=== PATIENT | female | born 1970 | race Caucasian/White ===

== ENCOUNTER 2018-10-22 08:49 | Outpatient (CLI) | payer BC ==
--- NOTE | 2018-10-22 11:29 | ULT ---
RIGHT UPPER QUADRANT ULTRASOUND: Indication: IBS, gastroesophageal reflux disease. FINDINGS: There is prominent fatty infiltration of the liver. There are numerous shadowing stones within the ga llbladder. No gallbladder wall thickening or pericholecystic fluid is evident. No sonographic Lester sign is reported. The common bile duct measured 8.9 mm which is slightly prominent for age. No chan intrahepatic biliary ductal dilatation is noted. No pericholecystic fluid is noted. Visualized aspect s of the pancreas are unremarkable. The right kidney measured 12.1 cm in length without evidence of f ocal renal lesion or hydronephrosis. IMPRESSION 1. Cholelithiasis without sonographic evidence of acute cholecystitis. 2. Slightly prominent common bile duct. Distal obstructive process versus small stone or mass cannot be entirely excluded. Recommend consideration for an MRCP examination. Recommend clinical exam for an y symptoms or signsof choledocholithiasis. 3. Fatty infiltration of the liver. POS: CARMITA
== END 2018-10-22 08:50 | disposition home or self-care (01) ==
LOC: BICULT 08:49
PROVIDERS: ATTEND Internal Medicine Gastroenterology
DX: K21.9 Gastro-esophageal reflux disease without esophagitis (principal); K58.9 Irritable bowel syndrome, unspecified; K76.0 Fatty (change of) liver, not elsewhere classified; K80.20 Calculus of gallbladder without cholecystitis without obstruction
CPT/HCPCS: 76705

== ENCOUNTER 2018-10-25 10:02 | Day surgery (SDC) | payer BC ==
[2018-10-24 12:05] VITALS: BMI 46.3
[2018-10-25] MEDS ORDERED: PROPOFOL 200 MG/20 ML VIAL ONE (17:22)
--- NOTE | 2018-10-25 20:07 | OP ---
DATE OF PROCEDURE: 10/25/2018 TITLE OF PROCEDURE: Colonoscopy. PREPROCEDURE DIAGNOSIS: Average risk colon cancer screening. POSTPROCEDURE DIAGNOSES: 1. Exam to cecum; good bowel preparation. 2. Moderate sigmoid diverticulosis. 3. Small internal hemorrhoids. 4. Otherwise normal colonoscopy. PROCEDURE IN DETAIL: Written informed consent was obtained. Upon completion of the EGD, the patient was repositioned for the colonoscopy. Total intravenous anesthesia was provided by Dr. Ernst Winters and associates. The patient was placed in the left lateral decubitus position. A digital rectal exam was remarkable for a few small external skin tags. A Pentax video colonoscope was inserted through the anal canal and advanced under direct visualization to the cecum. Position in the cecum was verified by clear identification of the appendiceal orifice and the ileocecal valve. The quality of the bowel preparation was good. Each colon segment was examined carefully as the colonoscope was slowly withdrawn from the cecum. Vascular pattern and haustral folds appeared normal. Frequent diverticular orifices were noted in the sigmoid colon without evidence of bleeding or infection. No polyps were identified. In the rectum, retroflexed view demonstrated small internal hemorrhoids that were not bleeding. The colon was decompressed as the colonoscope was removed from the patient. She was transferred to the Day Stay surgery area for postprocedure monitoring. There were no immediate complications. RECOMMENDATIONS: 1. High-fiber, low-fat diet. 2. Continue Amitiza for chronic constipation. 3. Repeat colon screening in 10 years. 4. Resume previous medications. 5. Follow up in GI Clinic as directed per my EGD report. Job ID: [id number]
--- NOTE | 2018-10-25 20:16 | OP ---
DATE OF PROCEDURE: 10/25/2018 PROCEDURE PERFORMED: Esophagogastroduodenoscopy with biopsy. PREPROCEDURE DIAGNOSIS: Chronic gastroesophageal reflux disease. POSTPROCEDURE DIAGNOSES: 1. Exam to second portion of duodenum. 2. A 2 to 3 cm sliding hiatal hernia. 3. Mildly irregular Z-line with a few small chronic erosions, biopsied. 4. No esophageal or gastric ulcers. 5. Normal stomach. 6. Normal duodenum. DESCRIPTION OF PROCEDURE: Written informed consent was obtained. The patient was brought to the endoscopy suite. Total intravenous anesthesia was provided by Dr. Ernst Winters. The patient was placed in the left lateral decubitus position. A bite block was inserted into the mouth. A Pentax video diagnostic gastroscope was introduced into the oral cavity and the esophagus was carefully intubated. The gastroscope was advanced under direct visualization to the second portion of the duodenum. Endoscopic findings revealed a 2 to 3 cm sliding hiatal hernia with the Z-line estimated at about 39 cm. The Z-line appeared mildly irregular with a few small chronic erosions noted at the 39 cm. Biopsies were obtained for histology. There was no evidence of esophageal or gastric ulcer. The stomach was entered and carefully examined. This included a retroflex view of the cardia and fundus. This view demonstrated the small hiatal hernia. No ulcers or gastritis was noted. The duodenum from the bulb to the second portion was then inspected and appeared grossly normal. The stomach was decompressed as the endoscope was removed from the patient. She was then repositioned for the colonoscopy. RECOMMENDATIONS: 1. Await biopsy results. 2. Ask the patient to call me in one week for biopsy results. 3. Continue Dexilant. 4. Encourage modest weight reduction of 10% of current body weight. 5. Follow up with me as needed in GI Clinic in 6 to 8 weeks. Job ID: [id number]
== END 2018-10-25 14:34 | disposition home or self-care (01) ==
LOC: SDC 10:02
PROVIDERS: ATTEND Internal Medicine Gastroenterology
PROC: 0DB58ZX Excision of Esophagus, Via Natural or Artificial Opening Endoscopic, Diagnostic (ICD-10-PCS; principal; 2018-10-25)
PROC: 0DJD8ZZ Inspection of Lower Intestinal Tract, Via Natural or Artificial Opening Endoscopic (ICD-10-PCS; principal; 2018-10-25)
DX: Z12.11 Encounter for screening for malignant neoplasm of colon (principal); K57.31 Diverticulosis of large intestine without perforation or abscess with bleeding; K64.8 Other hemorrhoids; K58.1 Irritable bowel syndrome with constipation; K21.9 Gastro-esophageal reflux disease without esophagitis; K25.9 Gastric ulcer, unspecified as acute or chronic, without hemorrhage or perforation; K44.9 Diaphragmatic hernia without obstruction or gangrene; G47.30 Sleep apnea, unspecified; E66.3 Overweight; Z68.42 Body mass index [BMI] 45.0-49.9, adult; Z87.891 Personal history of nicotine dependence; Z79.899 Other long term (current) drug therapy
CPT/HCPCS: 88305; 88312; 88313; J2704

== ENCOUNTER 2018-10-31 02:47 | Outpatient (CLI) | payer BC ==
[2018-10-31 10:14] LABS: #Eosinphils 0.1 thou/uL (0.0-0.7); #Lymphocytes 1.7 thou/uL (1.20-3.40); #Monocytes 0.4 thou/uL (0.11-0.59); %Basophils 0.8 % (0.0-1.0); %Eosinophils 2.2 % (0.0-10.0); %Lymphocytes 32.5 % (21.0-51.0); %Monocytes 6.9 % (0.0-10.0); %Neutrophils 57.6 % (42.0-75.0); Hemoglobin 14.4 g/dL (12.0-16.0); Mean Corpuscular Hemoglobin 30.7 pg (27.0-31.0); Mean Corpuscular Volume 90.5 fL (78.0-98.0); Mean Platelet Volume 6.8 fL (7.4-10.4); Platelet Count 249 thou/uL (130-400); RBC Distribution Width 11.6 % (11.5-14.5); White Blood Cell (WBC) Count 5.2 thou/uL (4.8-10.8)
[2018-10-31 10:36] LABS: ALT (SGPT) 19 U/L (8-55); AST (SGOT) 20 U/L (5-34); Albumin 4.4 g/dL (3.5-5.0); Alkaline Phosphatase 64 U/L (40-150); Anion Gap 13 mmol/L (10-20); BUN (Urea Nitrogen) 10 mg/dL (7.0-18.7); Bilirubin, Total 0.5 mg/dL (0.2-1.2); Calc. Creatinine Clearance 0 mL/min (70-130); Calcium 9.6 mg/dL (7.8-10.44); Carbon Dioxide 23 mmol/L (22-29); Chloride 104 mmol/L (98-107); Estimated GFR-MDRD 75; Glucose 93 mg/dL (70-105); Potassium 4.1 mmol/L (3.5-5.1); Protein, Total 7.4 g/dL (6.0-8.3); Sodium 136 mmol/L (136-145)
== END 2018-10-31 02:48 | disposition home or self-care (01) ==
LOC: LABBT 02:47
PROVIDERS: ATTEND Surgery
DX: Z01.812 Encounter for preprocedural laboratory examination (principal); K80.20 Calculus of gallbladder without cholecystitis without obstruction
CPT/HCPCS: 80053; 85025

== ENCOUNTER 2018-11-02 08:07 | Day surgery (SDC) | payer BC ==
[2018-10-31 09:19] VITALS: BMI 46.3
[2018-11-02] MEDS ORDERED: Ketorolac Tromethamine 30 MG/ML VIAL ONE (08:27)
[2018-11-02] MEDS ORDERED: CEFAZOLIN 2 GM/50 ML BAG ONE (08:27)
[2018-11-02] MEDS ORDERED: Midazolam HCl 2 mg/2 ml Vial ONE (09:46)
[2018-11-02] MEDS ORDERED: Fentanyl 100 MCG/2 ML VIAL ONE ×3 (09:46→13:35)
[2018-11-02] MEDS ORDERED: Lidocaine 2% Jelly 5 ML TUBE ONE (09:46)
[2018-11-02] MEDS ORDERED: Bupivacaine HCl 0.5%/Epinephrine 1:200,000/PF 30 ml Vial ONE (09:59)
[2018-11-02] MEDS ORDERED: Iothalamate Meglumine 60% 50 ML VIAL FS ONE (09:59)
--- NOTE | 2018-11-02 11:51 | RAD ---
OPERATIVE CHOLANGIOGRAM 2 VIEWS: Date: 11/02/18 HISTORY: Intraoperative films. FINDINGS: These show filling of the nondilated common duct. No filling defects. Emptying into the duodenum is n oted. IMPRESSION: Unremarkable operative cholangiogram. POS: [facility]
[2018-11-02] MEDS ORDERED: Promethazine HCl 25 MG/ML VIAL ONE (12:29)
--- NOTE | 2018-11-02 14:42 | PDOC.OP ---
Operative Note - Operative Note Operative Note: PROCEDURE: Laparoscopic cholecystectomy with intraoperative cholangiogram SURGEON: Sarah Cornell M.D. DATE OF PROCEDURE: PREOPERATIVE DIAGNOSIS: Cholelithiasis and cholecystitis, possible choledocholithiasis: POSTOPERATIVE DIAGNOSIS: Cholelithiasis and cholecystitis HISTORY: FINDINGS: Extremely thick-walled chronically inflamed gallbladder with stone impacted in the neck and cloudy collarless bile aspirated. Normal intraoperative cholangiogram. PROCEDURE IN DETAIL: After informed consent was obtained and appropriate preoperative antibiotics were administered, the patient was taken to the operating room and placed in the supine position and general endotracheal anesthesia was administered. The stomach was decompressed with an OG tube and the abdomen was prepped and draped in standard sterile fashion. Local anesthesia was infused to the skin and subcutaneous tissues at the umbilical level. A transverse skin incision was made. The fascia was elevated and a Veress needle was placed into the abdominal cavity without difficulty. Opening pressure was less than 5 and carbon dioxide gas easily insufflated to an intra- abdominal pressure of 15, which the patient tolerated well. The Veress needle was withdrawn and a [place] port advanced under direct vision. The abdominal cavity was carefully examined. There was no evidence of Veress needle or of trocar injury. Local anesthesia was infused to the skin and subcutaneous tissues at the epigastric, right upper quadrant, and right lateral abdominal sites and trocars were placed under direct vision of the laparoscope. The fundus of the gallbladder was too taut to grasp so this was aspirated with removal of 130 mL of cloudy colorless bile which was sent for Gram stain and culture. The fundus was then able to be grasped and retracted superiorly. The infundibulum was grasped and retracted laterally. The serosa was stripped inferiorly at the level of the neck of the gallbladder, where a stone was visible impacted in the neck. The cystic duct and artery which were traced clearly to their insertion in the gallbladder. These were dissected free circumferentially and the cystic duct was clipped at the level of the neck of the gallbladder. The cystic artery was clipped but not divided. An incision was made in the cystic duct inferior to the clip and the cystic duct was palpated with no stones palpable. Clear bile was seen to flow from the cystic duct incision. A cholangiogram catheter was introduced and placed into the cystic duct and secured with a clip. A cholangiogram was obtained which showed an adequate length of cystic duct. There was normal filling of the common bile duct with free flow of contrast into the duodenum. There was normal retrograde flow into the common hepatic duct beyond the level of the bifurcation without filling defects. The cholangiogram catheter was removed and the cystic duct clipped below the incision in the cystic duct. The cystic duct was divided between these clips and the previously placed clip. The cystic artery was clipped and divided between the previously placed clips. The gallbladder was then dissected free of the gallbladder bed using hook electrocautery. Prior to complete removal of the gallbladder from the gallbladder bed, the area of the cystic duct and artery stumps was examined. The clips were in good position completely across these structures and there was no bleeding and no leakage of bile. The gallbladder was then placed into an EndoCatch bag and drawn out through the epigastric incision, with some difficulty due to the thickened nature of the gallbladder, after crushing and removing several gallstones. The epigastric trocar was replaced and the operative site easily irrigated to clear. There was no significant bleeding or spillage of bile. The epigastric trocar was removed and the fascia closed under direct laparoscopic vision with a 0 Vicryl suture on a GraNee needle in a [id number] manner with excellent technical result. The right upper quadrant and right lateral abdominal trocars were removed and hemostasis verified. Carbon dioxide gas was allowed to desufflate through the umbilical trocar which was then removed. The skin incisions were closed with 4-0 subcuticular Monocryl sutures and Dermabond dressings were placed. The patient was extubated and taken to the recovery room in good condition. There were no complications. ESTIMATED BLOOD LOSS: Minimal. SPECIMEN : Gallbladder and contents.
[2018-11-02] MEDS ORDERED: HYDROcodone/Acetaminophen 5/325 mg Tablet ONE (15:15)
[2018-11-02] MEDS ORDERED: Succinylcholine Chloride 20 MG/ML 10 ml SYRINGE FS ONE (15:59)
[2018-11-02] MEDS ORDERED: Rocuronium Bromide 10 MG/ML (10ML VIAL) ONE (15:59)
[2018-11-02] MEDS ORDERED: PROPOFOL 200 MG/20 ML VIAL ONE (15:59)
[2018-11-02] MEDS ORDERED: Lidocaine 1% PF 5 ML VIAL ONE (15:59)
[2018-11-02] MEDS ORDERED: ePHEDrine 50 MG/ML VIAL ONE (15:59)
[2018-11-02] MEDS ORDERED: Ondansetron PF 4 MG/2 ML Vial ONE (15:59)
[2018-11-02] MEDS ORDERED: Glycopyrrolate 0.2 MG/ML 5 ML SYRINGE ONE (15:59)
[2018-11-02] MEDS ORDERED: Dexamethasone 20 MG/5 ML VIAL ONE (15:59)
[2018-11-02] MEDS ORDERED: PHENYLEPHRINE-NS 100 MCG/ML 10 ML SYRINGE ONE (15:59)
== END 2018-11-02 15:30 | disposition home or self-care (01) ==
LOC: SDC 08:07
PROVIDERS: ATTEND Surgery
PROC: 0FT44ZZ Resection of Gallbladder, Percutaneous Endoscopic Approach (ICD-10-PCS; principal; 2018-11-02)
PROC: BF101ZZ Fluoroscopy of Bile Ducts using Low Osmolar Contrast (ICD-10-PCS; principal; 2018-11-02)
DX: K80.10 Calculus of gallbladder with chronic cholecystitis without obstruction (principal); K21.9 Gastro-esophageal reflux disease without esophagitis; K44.9 Diaphragmatic hernia without obstruction or gangrene; G47.30 Sleep apnea, unspecified; E78.2 Mixed hyperlipidemia; K58.9 Irritable bowel syndrome, unspecified; E66.01 Morbid (severe) obesity due to excess calories; Z68.42 Body mass index [BMI] 45.0-49.9, adult; Z79.899 Other long term (current) drug therapy
CPT/HCPCS: 47532; 87070; 87205; 88304; J0131; J0670; J1100; J1610; J1885; J2001; J2250; J2405; J2550; J2704; J3010; J3490; Q9961

== ENCOUNTER 2019-01-16 10:31 | Outpatient (CLI) | payer BC ==
--- NOTE | 2019-01-16 11:40 | ULT ---
TRANSABDOMINAL AND TRANSVAGINAL PELVIC ULTRASOUND WITH GRAYSCALE, COLORFLOW, AND SPECTRAL DOPPLER MAN GING: FINDINGS: The uterus measures 9.2 x 5.2 x 6.4 cm with heterogeneous echotexture. There are at least two masses seen, the larger measuring 2.8 x 2.3 x 2.0 cm, consistent with fibroids. No endometrial fluid is se en. The endometrium measures 6 mm in thickness. The left ovary is not visualized. The right ovary measures 3.1 x 2.6 x 2.2 cm. There is flow demonstrated to the right ovary. There is a 2.2 cm cyst arising from the right ovary. No free fluid is identified. IMPRESSION: 1. Uterine fibroids. 2. A 2.2 cm right ovarian cyst. POS: OFF
== END 2019-01-16 10:32 | disposition home or self-care (01) ==
LOC: BICULT 10:31
PROVIDERS: ATTEND Physician Assistant
DX: N93.9 Abnormal uterine and vaginal bleeding, unspecified (principal); D25.9 Leiomyoma of uterus, unspecified; N83.201 Unspecified ovarian cyst, right side
CPT/HCPCS: 76856

== ENCOUNTER 2021-08-18 12:41 | Outpatient (CLI) | payer BC | END 2021-08-18 12:42 | disposition home or self-care (01) | LOC: BICCT 12:41 | PROVIDERS: ATTEND Family Medicine | DX: Z12.2 Encounter for screening for malignant neoplasm of respiratory organs (principal); J66.8 Airway disease due to other specific organic dusts; Z87.891 Personal history of nicotine dependence | CPT/HCPCS: 71271 ==

== ENCOUNTER 2022-03-30 10:12 | Emergency (ER) | payer BC, SELFPAY ==
[~2022-03-30 10:12] MED LIST: ISOVUE-370 76%-LOCM 1 ML ONE
[2022-03-30 10:42] LABS: #Basophils 0.1 thou/uL (0.0-0.2); #Eosinphils 0.1 thou/uL (0.0-0.7); #Lymphocytes 1.7 thou/uL (1.20-3.40); #Monocytes 0.3 thou/uL (0.11-0.59); #Neutrophils 2.9 thou/uL (1.40-6.50); %Basophils 1.4 % (0.0-1.0); %Eosinophils 2.8 % (0.0-10.0); %Lymphocytes 33.8 % (21.0-51.0); Hemoglobin 14.4 g/dL (12.0-16.0); Mean Corpuscular HGB CONC 32.9 g/dL (32.0-36.0); Mean Corpuscular Hemoglobin 30.8 pg (27.0-31.0); Mean Corpuscular Volume 93.6 fL (78.0-98.0); Mean Platelet Volume 7.4 fL (7.4-10.4); Platelet Count 210 thou/uL (130-400); RBC Distribution Width 11.6 % (11.5-14.5); Red Blood Cell (RBC) Count 4.67 mill/uL (4.20-5.40)
[2022-03-30 11:00] LABS: ALT (SGPT) 14 U/L (8-55); AST (SGOT) 22 U/L (5-34); Albumin 4.2 g/dL (3.5-5.0); Alkaline Phosphatase 79 U/L (40-110); Anion Gap 13 mmol/L (10-20); BUN (Urea Nitrogen) 10 mg/dL (9.8-20.1); Bilirubin, Total 0.6 mg/dL (0.2-1.2); Calc. Creatinine Clearance 0 mL/min (70-130); Calcium 9.8 mg/dL (7.8-10.44); Carbon Dioxide 28 mmol/L (22-29); Chloride 101 mmol/L (98-107); Estimated GFR 82; Globulin 3.4 g/dL (2.4-3.5); Glucose 98 mg/dL (70-105); Lipase 13 U/L (8-78); Potassium 4.7 mmol/L (3.5-5.1); Protein, Total 7.6 g/dL (6.0-8.3); Sodium 137 mmol/L (136-145)
[2022-03-30 12:05] LABS: Bilirubin Negative (Negative); Blood, Urine Negative (Negative); Clarity Clear (Clear); Glucose, Urine (Dipstick) Normal (Negative); Ketone, Urine Negative (Negative); Leukocyte Negative Leu/uL (Negative); Nitrite Negative (Negative); Protein, Urine (Dipstick) Negative (Neg-Trace); Specific Gravity, Urine 1.015 (1.002-1.036); Urobilinogen Normal mg/dL (Less than 2)
== END 2022-03-30 13:55 | disposition home or self-care (01) ==
LOC: ERS 10:12
DX: R10.11 Right upper quadrant pain (principal); Z79.82 Long term (current) use of aspirin
CPT/HCPCS: 36415; 74177; 80053; 81003; 83690; 85025; 93005; 96360; 96361; Q9966

== ENCOUNTER 2022-06-09 15:38 | Outpatient (CLI) | payer BC | END 2022-06-09 15:39 | disposition home or self-care (01) | LOC: BICMAMMO 15:38 | PROVIDERS: ATTEND Family Medicine | DX: Z13.820 Encounter for screening for osteoporosis (principal); Z78.0 Asymptomatic menopausal state | CPT/HCPCS: 77080 ==

== ENCOUNTER 2022-07-15 19:30 | Outpatient (CLI) | payer BC | END 2022-07-15 19:31 | disposition home or self-care (01) | LOC: SLEEPLAB 19:30 | PROVIDERS: ATTEND Family Medicine | DX: G47.00 Insomnia, unspecified (principal); R53.83 Other fatigue; R51.9 Headache, unspecified; K21.9 Gastro-esophageal reflux disease without esophagitis; E66.9 Obesity, unspecified; G47.10 Hypersomnia, unspecified; Z68.42 Body mass index [BMI] 45.0-49.9, adult | CPT/HCPCS: 95811 ==

== ENCOUNTER 2022-09-07 12:32 | Outpatient (CLI) | payer BC | END 2022-09-07 12:33 | disposition home or self-care (01) | LOC: BICCT 12:32 | PROVIDERS: ATTEND Family Medicine | DX: Z12.2 Encounter for screening for malignant neoplasm of respiratory organs (principal); Z87.891 Personal history of nicotine dependence | CPT/HCPCS: 71271 ==

== ENCOUNTER 2022-10-03 08:34 | Outpatient (CLI) | payer BC | END 2022-10-03 08:35 | disposition home or self-care (01) | LOC: RAD 08:34 | PROVIDERS: ATTEND Surgery | DX: K21.9 Gastro-esophageal reflux disease without esophagitis (principal) | CPT/HCPCS: 74220 ==

== ENCOUNTER 2022-11-02 15:37 | Outpatient (CLI) | payer BC | END 2022-11-02 15:38 | disposition home or self-care (01) | LOC: DTY/OP 15:37 | PROVIDERS: ATTEND Surgery | DX: E66.01 Morbid (severe) obesity due to excess calories (principal) | CPT/HCPCS: 97802 ==

== ENCOUNTER 2022-11-17 11:15 | Day surgery (SDC) | payer BC ==
[2022-11-16 15:59] VITALS: BMI 49.1
[2022-11-17] MEDS ORDERED: PROPOFOL 200 MG/20 ML VIAL ONE (12:59)
[2022-11-17] MEDS ORDERED: Lidocaine 1% PF 5 ML VIAL ONE (12:59)
== END 2022-11-17 14:15 | disposition home or self-care (01) ==
LOC: SDC 11:15
PROVIDERS: ATTEND Internal Medicine Gastroenterology
PROC: 0DB38ZX Excision of Lower Esophagus, Via Natural or Artificial Opening Endoscopic, Diagnostic (ICD-10-PCS; principal; 2022-11-17)
DX: K21.00 Gastro-esophageal reflux disease with esophagitis, without bleeding (principal); K22.2 Esophageal obstruction; K44.9 Diaphragmatic hernia without obstruction or gangrene; K58.9 Irritable bowel syndrome, unspecified; G47.30 Sleep apnea, unspecified; E66.9 Obesity, unspecified; Z68.42 Body mass index [BMI] 45.0-49.9, adult; Z87.891 Personal history of nicotine dependence; Z79.899 Other long term (current) drug therapy
CPT/HCPCS: 88305; J2704

== ENCOUNTER 2022-12-21 09:23 | Inpatient (IN) | payer BC ==
[2022-12-19 10:43] VITALS: BMI 49.9
[2022-12-21] MEDS ORDERED: Heparin 5,000 UNITS/ML VIAL ONE (10:10)
[2022-12-21] MEDS ORDERED: Bupivacaine/Epinephrine 0.25% 30 ML VIAL ONE ×2 (11:45→12:31)
[2022-12-21] MEDS ORDERED: Fentanyl 250 MCG/5 ML VIAL ONE (11:48)
[2022-12-21] MEDS ORDERED: SUGAMMADEX SODIUM 200 MG/2 ML VIAL ONE (11:48)
[2022-12-21] MEDS ORDERED: Sodium Chloride 0.9% 100 ML ONE (12:37)
[2022-12-21] MEDS ORDERED: CEFAZOLIN 2 GM VIAL ONE (12:37)
[2022-12-21] MEDS ORDERED: Dexamethasone 20 MG/5 ML VIAL ONE (12:51)
[2022-12-21] MEDS ORDERED: Lidocaine 1% PF 5 ML VIAL ONE (12:51)
[2022-12-21] MEDS ORDERED: Ketorolac Tromethamine 30 MG/ML VIAL ONE (12:51)
[2022-12-21] MEDS ORDERED: PROPOFOL 200 MG/20 ML VIAL ONE (12:51)
[2022-12-21] MEDS ORDERED: ePHEDrine Sulfate 50 MG/10 ML VIAL ONE (12:51)
[2022-12-21] MEDS ORDERED: Ondansetron PF 4 MG/2 ML Vial ONE ×3 (12:51→15:31)
[2022-12-21] MEDS ORDERED: GLYCOPYRROLATE/PF 0.2 MG/ML VIAL ONE (12:51)
[2022-12-21] MEDS ORDERED: Rocuronium Bromide 10 MG/ML (10ML VIAL) ONE (12:51)
[2022-12-21] MEDS ORDERED: Sevoflurane 250 ML INH ANEST BOTTLE ONE (13:11)
[2022-12-21] MEDS ORDERED: Ondansetron HCl/PF 4 MG/2 ML Vial IVP PRN (13:25)
[2022-12-21] MEDS ORDERED: Promethazine HCl 25 MG/ML VIAL IM PRN ×3 (13:25→15:41)
[2022-12-21] MEDS ORDERED: Meperidine HCl/PF 25 MG/ML VIAL SLOW IVP PRN (13:25)
[2022-12-21] MEDS ORDERED: HYDROmorphone 2 MG/ML VIAL SLOW IVP PRN (13:25)
[2022-12-21] MEDS ORDERED: FENTANYL 50 MCG/ML 1 ML VIAL ONE (15:16)
[2022-12-21] MEDS ORDERED: hydrALAZINE 20 MG/ML VIAL SLOW IVP PRN (15:25)
[2022-12-21] MEDS ORDERED: diphenhydrAMINE 50 MG/ML VIAL IVP PRN ×2 (15:25→15:41)
[2022-12-21] MEDS ORDERED: Ipratropium/Albuterol 3 ML NEB NEB PRN (15:25)
[2022-12-21] MEDS ORDERED: Dextrose 5% in Water 1,000 ML IV PRN (15:25)
[2022-12-21] MEDS ORDERED: Hydrocodone-Acetamin 15 ML UDCUP PO PRN (15:25)
[2022-12-21] MEDS ORDERED: Ondansetron PF 4 MG/2 ML Vial IVP PRN ×2 (15:25→15:41)
[2022-12-21] MEDS ORDERED: Dextrose 50% Abboject 50 ML SYRINGE SLOW IVP PRN (15:25)
[2022-12-21] MEDS ORDERED: diphenhydrAMINE 25 MG CAP PO PRN (15:41)
[2022-12-21] MEDS ORDERED: diphenhydrAMINE 50 MG/ML VIAL IM PRN (15:41)
[2022-12-21] MEDS ORDERED: FENTANYL 500 MCG/10 ML VIAL 2,000 MCG in Sodium Chloride 0.9% 60 ML IV PRN (15:41)
[2022-12-21] MEDS ORDERED: Zolpidem Tartrate 5 MG TAB PO PRN (15:41)
[2022-12-21] MEDS ORDERED: Naloxone HCl 0.4 mg/ml Vial IV PRN (15:41)
[2022-12-21] MEDS ORDERED: Communication Order-Pharmacy FS SCH (15:45)
[2022-12-21] MEDS: D5 1/2 NS w/20 mEq KCL 1,000 ML IV SCH (20:35)
[2022-12-22] MEDS: D5 1/2 NS w/20 mEq KCL 1,000 ML IV SCH ×2 (00:06→05:30)
[2022-12-22] MEDS ORDERED: Ketorolac Tromethamine 30 MG/ML VIAL ONE ×2 (06:15→06:20)
[2022-12-22 06:45] LABS: #Lymphocytes 0.7 thou/uL (1.20-3.40); #Monocytes 0.3 thou/uL (0.11-0.59); #Neutrophils 6.7 thou/uL (1.40-6.50); %Eosinophils 0.3 % (0.0-10.0); %Lymphocytes 9.3 % (21.0-51.0); %Monocytes 4.2 % (0.0-10.0); %Neutrophils 86.2 % (42.0-75.0); Hemoglobin 12.1 g/dL (12.0-16.0); Mean Corpuscular HGB CONC 33.1 g/dL (32.0-36.0); Mean Corpuscular Hemoglobin 31.1 pg (27.0-31.0); Mean Corpuscular Volume 94.1 fl (78.0-98.0); Mean Platelet Volume 7.2 fL (7.4-10.4); Platelet Count 216 10x3/uL (130-400); RBC Distribution Width 11.7 % (11.5-14.5); White Blood Cell (WBC) Count 7.8 10x3/uL (4.8-10.8)
[2022-12-22 07:03] LABS: Anion Gap 10 mmol/L (10-20); BUN (Urea Nitrogen) 8 mg/dL (9.8-20.1); Calc. Creatinine Clearance 196 mL/min (70-130); Calcium 8.9 mg/dL (7.8-10.44); Carbon Dioxide 26 mmol/L (22-29); Chloride 103 mmol/L (98-107); Estimated GFR 94; Glucose 153 mg/dL (70-105); Potassium 4.3 mmol/L (3.5-5.1); Sodium 135 mmol/L (136-145)
[2022-12-22] MEDS: Hydrocodone-Acetamin 15 ML UDCUP PO PRN ×2 (07:58→12:17)
[2022-12-22] MEDS ORDERED: Pantoprazole 40 MG VIAL IVP SCH (09:00)
[2022-12-22 12:22] VITALS: BP 120/72; TEMP 98
== END 2022-12-22 13:24 | disposition home or self-care (01) | DRG 621 ==
LOC: SDC 09:23 → SURG A 16:47
PROVIDERS: ADMIT Surgery; ATTEND Surgery
PROC: 0D164ZA Bypass Stomach to Jejunum, Percutaneous Endoscopic Approach (ICD-10-PCS; principal; 2022-12-21)
PROC: 8E0W4CZ Robotic Assisted Procedure of Trunk Region, Percutaneous Endoscopic Approach (ICD-10-PCS; 2022-12-21)
DX: E66.01 Morbid (severe) obesity due to excess calories (principal); G47.33 Obstructive sleep apnea (adult) (pediatric); E78.5 Hyperlipidemia, unspecified; E78.2 Mixed hyperlipidemia; K21.00 Gastro-esophageal reflux disease with esophagitis, without bleeding; Z68.43 Body mass index [BMI] 50.0-59.9, adult; Z98.51 Tubal ligation status; Z79.899 Other long term (current) drug therapy; Z79.82 Long term (current) use of aspirin; Z90.89 Acquired absence of other organs; Z98.890 Other specified postprocedural states; Z82.49 Family history of ischemic heart disease and other diseases of the circulatory system
CPT/HCPCS: 36415; 80048; 85025; 94660; C9113; J0360; J1100; J1644; J1650; J1885; J2405; J2704; J3010; J3480; J3490